=== PATIENT | female | born 1990 | race Asian ===

== ENCOUNTER 2016-08-24 22:05 | Emergency (ER) | payer OTHER ==
[~2016-08-24] VITALS: Ht 157.5 cm; Wt 56.9 kg
[2016-08-24 22:20] VITALS: BP 109/55
[2016-08-24] MEDS ORDERED: GUAI600T38 PO (23:55)
[2016-08-24] MEDS ORDERED: GUAI120L35 PO (23:55)
--- NOTE | 2016-08-24 23:56 | PHYS DOC ---
Past Medical History Past Medical History: Other Additional Past Medical Histor: POTS Past Surgical History: No Surgical History Alcohol Use: None Drug Use: None Adult General Chief Complaint Chief Complaint: COUGH HPI HPI Patient is a 25 year old who presents with parents for cough, congestion, sore throat since yesterday. Denies fever, headache, body aches, medical problems. No other family members with symptoms. Review of Systems Review of Systems Constitutional: Denies fever or chills Eyes: Denies change in visual acuity, redness, or eye pain HENT: Sore throat and congestion Respiratory: Denies shortness of breath. Cough Cardiovascular: No additional information not addressed in HPI [] GI: Denies abdominal pain, nausea, vomiting, bloody stools or diarrhea : Denies dysuria or hematuria Musculoskeletal: Denies back pain or joint pain Integument: Denies rash or skin lesions Neurologic: Denies headache, focal weakness or sensory changes Endocrine: Denies polyuria or polydipsia [] Allergies Allergies Allergies Coded Allergies Type Severity Reaction Last Updated Verified Tetracyclines Allergy Intermediate rash 08/24/16 Yes Physical Exam Physical Exam Constitutional: Well developed, well nourished, non-toxic appearance. Productive cough on exam HENT: Normocephalic, atraumatic, bilateral external ears normal, oropharynx moist, no oral exudates. Bilateral nasal drainage. Bialteral tonsils erythematous without exudate Eyes: PERRLA, EOMI, conjunctiva normal, no discharge. Neck: Normal range of motion, no tenderness, supple, no stridor. Anterior cervical adenopathy Cardiovascular:Heart rate regular rhythm, no murmur Lungs & Thorax: Bilateral breath sounds clear to auscultation Abdomen: Bowel sounds normal, soft, no tenderness, no masses, no pulsatile masses. Skin: Warm, dry, no erythema, no rash. Back: No tenderness, no CVA tenderness. Extremities: No tenderness, no cyanosis, no clubbing, ROM intact, no edema. Neurologic: Alert and oriented X 3, normal motor function, normal sensory function, no focal deficits noted. [] Psychologic: Affect normal, judgement normal, mood normal. [] Current Patient Data Vital Signs Vital Signs Date Time Temp Pulse Resp B/P Pulse Ox O2 Delivery O2 Flow Rate FiO2 08/24/16 22:20 99.1 86 16 98 Room Air 99.1 EKG EKG [] Radiology/Procedures Radiology/Procedures [] Impressions: 1. Viral illness Course & Med Decision Making Course & Med Decision Making Pertinent Labs and Imaging studies reviewed. (See chart for details) [] Dragon Disclaimer Dragon Disclaimer This electronic medical record was generated, in whole or in part, using a voice recognition dictation system. Departure Departure Impression: Primary Impression: Viral upper respiratory illness Disposition: HOME, SELF-CARE Condition: STABLE Referrals: RAFAEL CHRISTINE (PCP) Patient Instructions: Viral Infections, [id number] Additional Instructions: 1. take medication as prescribed 2. return if problems or concerns 3. Follow up with primary doctor in 1-2 days Scripts Guaifenesin/Codeine Phosphate (Codeine-Guaifen 10-100 mg/5 ml)120 Ml Liquid5 Ml PO PRN Q4-6HRS PRN COUGH 5 Days Prov:BRITTANY JACKSON APRN 08/24/16 Guaifenesin (Mucinex)600 Mg Tablet.er1 Tab PO BID #[id number] TAB Prov:BRITTANY JACKSON APRN 08/24/16 BRITTANY JACKSON APRN Aug 24, 2016 23:55
[2016-08-25 05:16] LABS: NEGATIVE OBC STREP NEG; POSITIVE OBC STREP POS
== END 2016-08-25 00:09 | disposition home or self-care (01) ==
LOC: ER 22:05
DX: B34.9 Viral infection, unspecified (principal); Z88.8 Allergy status to other drugs, medicaments and biological substances
CPT/HCPCS: 87070; 87880; 99283